=== PATIENT | female | born 1995 | race Caucasian/White ===

== ENCOUNTER 2023-11-07 13:43 | Emergency (ER) | payer OTHER ==
[~2023-11-07] VITALS: Ht 165.1 cm; Wt 90.7 kg
[2023-11-07 14:18] VITALS: BP 146/96; PULSE 73; RESP 18; TEMP 99; O2SAT 99
[2023-11-07] MEDS ORDERED: IBUP-2213 PO (14:48)
== END 2023-11-07 14:53 | disposition home or self-care (01) ==
LOC: MED 13:43
DX: R59.0 Localized enlarged lymph nodes (principal); Z79.899 Other long term (current) drug therapy
CPT/HCPCS: 99282